=== PATIENT | female | born 1975 | race African-American/Black ===

== ENCOUNTER 2017-02-20 19:46 | Emergency (ER) | payer MEDICAID ==
[2017-02-20 22:39] VITALS: BP 151/96
== END 2017-02-20 22:39 | disposition home or self-care (01) ==
LOC: ED 19:46
DX: S76.011A Strain of muscle, fascia and tendon of right hip, initial encounter (principal); S80.12XA Contusion of left lower leg, initial encounter; M06.9 Rheumatoid arthritis, unspecified; Z88.5 Allergy status to narcotic agent; X58.XXXA Exposure to other specified factors, initial encounter; Y93.89 Activity, other specified; Y99.8 Other external cause status; Y92.89 Other specified places as the place of occurrence of the external cause
CPT/HCPCS: 90715

== ENCOUNTER 2019-12-11 09:11 | Emergency (ER) | payer MEDICAID ==
[~2019-12-11] VITALS: Ht 165.1 cm; Wt 73.0 kg
[2019-12-11 09:25] VITALS: Ht 165.1 cm; Wt 73.0 kg
[2019-12-11 10:45] LABS: CALCIUM 8.9 mg/dL (8.5-10.1); CARBON DIOXIDE 26.1 mmol/L (21-32); CHLORIDE SERUM 99 mmol/L (98-107); CREATININE SERUM 0.4 mg/dL (0.6-1.0); GFR1 > 60 mL/min; GLUCOSE SERUM 89 mg/dL (74-106); POTASSIUM SERUM 3.6 mmol/L (3.5-5.1); SODIUM SERUM 137 mmol/L (136-145)
[2019-12-11 10:49] LABS: ALBUMIN 3.7 g/dL (3.4-5.0); ALKALINE PHOSPHATASE 78 U/L (46-116); ALT/SGPT 20 U/L (14-59); AST/SGOT 16 U/L (15-37); BILIRUBIN TOTAL 0.4 mg/dL (0.20-1.00)
[2019-12-11 10:55] LABS: BASOPHIL % 0.1 % (0-2); PLATELET COUNT 140 x10^3mcL (130-400); RED CELL DISTRIBUTION WIDTH 14.5 % (11.5-14.5)
[2019-12-11 12:45] VITALS: BP 121/85
== END 2019-12-11 12:45 | disposition home or self-care (01) ==
LOC: ED 09:11
PROVIDERS: Emergency Medicine
DX: M54.6 Pain in thoracic spine (principal); M62.838 Other muscle spasm; F41.9 Anxiety disorder, unspecified; F17.210 Nicotine dependence, cigarettes, uncomplicated; I10 Essential (primary) hypertension; M06.9 Rheumatoid arthritis, unspecified; Z88.6 Allergy status to analgesic agent; Z88.5 Allergy status to narcotic agent; Z88.8 Allergy status to other drugs, medicaments and biological substances
CPT/HCPCS: 85378; 99406; J1885; J2270; J2405; Q0092